=== PATIENT | female | born 1965 ===

== ENCOUNTER 2017-12-23 08:25 | Outpatient (CLI) | payer OTHER ==
[~2017-12-23 08:25] MED LIST: CIPROFLOXA500 MG/51; DICY20TA; INTESTINEX680 MG PO; LOPERAMIDE2 MG; RELAGESIC TABL1 EACH PO; ZANTAC150 MG PO; ZOFRAN8 MG PO
== END 2017-12-23 09:13 | disposition home or self-care (01) ==
LOC: TOM 08:25
DX: R10.31 Right lower quadrant pain (principal)

== ENCOUNTER 2018-06-30 10:04 | Emergency (ER) | payer OTHER ==
[~2018-06-30] VITALS: Ht 157.5 cm; Wt 82.6 kg
== END 2018-06-30 14:14 | disposition home or self-care (01) ==
LOC: ER 10:04
DX: S92.411A Displaced fracture of proximal phalanx of right great toe, initial encounter for closed fracture (principal); W22.8XXA Striking against or struck by other objects, initial encounter; Y93.89 Activity, other specified; Y92.9 Unspecified place or not applicable

== ENCOUNTER 2019-10-24 13:06 | Emergency (ER) | payer OTHER ==
[~2019-10-24] VITALS: Ht 172.7 cm; Wt 72.6 kg
== END 2019-10-24 19:36 | disposition home or self-care (01) ==
LOC: ER 13:06
DX: S40.022A Contusion of left upper arm, initial encounter (principal); R07.89 Other chest pain; R55 Syncope and collapse; W18.39XA Other fall on same level, initial encounter; Y93.89 Activity, other specified; Y92.018 Other place in single-family (private) house as the place of occurrence of the external cause; Y99.8 Other external cause status

== ENCOUNTER 2021-01-29 11:12 | Emergency (ER) | payer OTHER ==
[~2021-01-29] VITALS: Ht 157.5 cm; Wt 81.6 kg
[2021-01-29] MEDS ORDERED: IVERMECTIN3 MG PO ×2 (14:23→16:26)
== END 2021-01-29 14:45 | disposition home or self-care (01) ==
LOC: ER 11:12
DX: U07.1 COVID-19 (principal); R05 Cough

== ENCOUNTER 2022-03-17 01:30 | Emergency (ER) | payer OTHER ==
[~2022-03-17] VITALS: Ht 157.5 cm; Wt 82.6 kg
[~2022-03-17 01:30] MED LIST changes: +IVERMECTIN3 MG PO
[2022-03-17] MEDS ORDERED: PEPCID AC20 MG PO (05:35)
[2022-03-17] MEDS ORDERED: CIPROFLOXACIN500 MG PO (05:35)
[2022-03-17] MEDS ORDERED: INTESTINEX680 M1 PO (05:35)
== END 2022-03-17 05:40 | disposition home or self-care (01) ==
LOC: ER 01:30
DX: N20.1 Calculus of ureter (principal); R10.32 Left lower quadrant pain; R19.7 Diarrhea, unspecified

== ENCOUNTER 2022-04-13 18:52 | Emergency (ER) | payer OTHER ==
[~2022-04-13] VITALS: Ht 157.5 cm; Wt 81.6 kg
[~2022-04-13 18:52] MED LIST changes: +CIPROFLOXACIN500 MG PO; +INTESTINEX680 M1 PO; +PEPCID AC20 MG PO
== END 2022-04-13 20:38 | disposition home or self-care (01) ==
LOC: ER 18:52
DX: U07.1 COVID-19 (principal)